=== PATIENT | male | born 1940 | race Caucasian/White ===

== ENCOUNTER 2023-07-23 08:59 | Emergency (ER) | payer MEDICARE, BC, SELFPAY ==
[2023-07-23 09:00] VITALS: BP 171/82
--- NOTE | 2023-07-23 10:41 | ED.GENMED ---
History of Present Illness
General
Chief Complaint: Dizziness
Time Seen by Provider: 07/23/23 10:19
Travel History
Have you had any contact with someone who has COVID-19?: No
Do you have any symptoms of coronavirus? Fever > 100 degrees, chills, cough, shortness of breath, sore throat, loss of taste or smell, muscle aches, or headache?: No
History of Present Illness
History of Present Illness:
82-year-old male presents the emergency department for evaluation of dizziness beginning last night. States that symptoms only strike when he is upright and walking, denies any vertigo or lightheaded sensation but feels as though he is unable to
walk in a straight line. Denies any blurred or double vision. No headaches, vision changes, chest pain, or shortness of breath. Denies any recent cold or flu type illnesses. No recent medication changes.
Review of Systems
Review of Systems
Allergies reviewed?: Yes
All Other Systems: ROS reviewed and negative except as documented in HPI and ROS
Phy Exam
Physical Exam
Physical Exam:
GEN: Well appearing, NAD, WDWN
HEENT: Oral mucosa moist, no scleral icterus, no nasal congestion
Cardiac: Regular rate
Lung: No respiratory distress, no tachypnea
MSK: No gross deformity or injuries
Skin: Good color, no pallor or jaundice, no rashes
Neuro: AO x3; CN II-XII grossly intact. BUE strength 5/5 in all [place], sensation intact and symmetric. BLE strength 5/5 in all [place], sensation intact and symmetric. Normal pmrbpm-dt-bicw and dfax-ks-amqh. Gait is steady,
Psych: Calm, cooperative
Course
Orders/Labs/Results
Orders:
Orders
07/23/23 09:03
EKG [Electrocardiogram (*1)] Urgent
Reason for Study: Vertigo / Dizzy
EKG- Treatment ONCE
07/23/23 10:40
Electrocardiogram (*1) Urgent
Reason for Study: Vertigo / Dizzy
CT Head W/o Iv Contrast Urgent
Comment:
Reason For Exam: dizziness
EKG- Treatment ONCE
07/23/23 10:46
Complete Blood Count/With Diff Urgent
Comprehensive Metabolic Panel Urgent
Abnormal Lab Results
07/23/23
10:46
RBC 4.39 L 10^6/uL
(4.70-6.10)
MCV 95.9 H fL
(80.0-94.0)
MCH 33.0 H pg
(27.0-31.0)
MPV 11.4 H fL
(7.4-10.4)
Immature Gran % 0.6 H %
(0-0.5)
Chloride 110 H mmol/L
(98-107)
BUN 24 H mg/dl
(9-20)
Glucose 109 H mg/dl
(70-99)
Total Bilirubin 1.7 H mg/dl
(0.2-1.3)
07/23/23 10:46
07/23/23 10:46
Vital Signs
Initial and Last Documented VS:
Initial Vital Signs
Temp Pulse Resp BP Pulse Ox
97.7 F 53 18 171/82 97
07/23/23 09:00 07/23/23 09:00 07/23/23 09:00 07/23/23 09:00 07/23/23 09:00
Last Documented Vital Signs
Temp Pulse Resp BP Pulse Ox
97.7 F 47 20 128/74 95
07/23/23 09:00 07/23/23 11:24 07/23/23 11:24 07/23/23 13:00 07/23/23 13:00
MDM/Problems Addressed
MDM/Problems Addressed:
Patient does not have any obvious nystagmus and he does not describe clear vertigo. His gait is quite steady and he does not appear to be immediate fall risk. He has no signs of orthostatic hypotension. He is noted to be bradycardic however is on
atenolol and states this is chronic for him after atenolol, his orthostatic vital signs do show an appropriate compensatory heart rate rise with elevation less than do not think orthostasis plays a role here. At this time the cause is unclear,
given the positional nature it could be an atypical vestibular issue and thus will refer to vestibular therapy as an outpatient. ED return parameters discussed
*Critical Care Note
Total Time (30-74mins, 75-104mins- exclusive of procedures): Not Applicable
ED Attending Note
-
Portions of this chart may have been created with voice recognition software.� Occasional wrong word or��sound alike� substitutions may have occurred due to the inherent limitations of voice recognition software.
Discharge Plan
Departure
Patient Disposition: Home (Routine Discharge)
Date of Disposition: 07/23/23
Time of Disposition: 13:11
Patient with high blood pressure during this ER visit?: No
Discharge Problem:
Vertigo
Instructions: Vertigo (a type of dizziness)
Prescriptions:
New
meclizine 25 mg tablet
25 mg PO BID PRN (Reason: severe dizziness) Qty: 10 0RF
No Action
atorvastatin 20 mg Tablet
20 mg PO QPM
therapeutic multivitamin Tablet
1 tab PO QPM
tamsulosin 0.4 mg Capsule
0.8 mg PO QPM
saw palmetto 160 mg Capsule
160 mg PO QPM
levothyroxine [Synthroid] 50 mcg Tablet
50 mcg PO DAILY
Eliquis 5 mg Tablet
5 mg PO BID Qty: 60 0RF
pantoprazole 40 mg Tablet,Delayed Release (Dr/Ec)
40 mg PO DAILY Qty: 10 0RF
atenolol 25 mg Tablet
25 mg PO BID
Referrals:
Singh Albert MD [Family Provider] -
Activity Restrictions/Additional Instructions:
Follow-up with your primary care physician for a brain MRI if your symptoms do not improve or worsen
Interventions
Interventions:
*Risk Screen - Suicide Last Done: 07/23/23 09:00
*General Assessment Last Done: 07/23/23 09:00
*Neglect/Abuse Screening Last Done: 07/23/23 09:00
ED- Fall Risk Assessment Last Done: 07/23/23 10:47
*ED COVID-19 Vaccine History Last Done: 07/23/23 09:00
*Nursing Disposition Last Done: 07/23/23 13:27
ED- Neurological Assessment Last Done: 07/23/23 10:47
ED- Cardiac Assessment Last Done: 07/23/23 10:47
ED Swallowing Screen Last Done: 07/23/23 10:47
Discharge Date and Time
Discharge Date/Time: 07/23/23 13:34
[2023-07-23 10:45] VITALS: BP 138/60
[2023-07-23 10:47] VITALS: BMI 26.6
[2023-07-23 10:53] LABS: % Basophils 0.3 % (0-2); % Eosinophils 0.7 % (0-6); % Immature Granulocytes 0.6 % (0-0.5); % Lymphocytes 27.3 % (20.5-51.1); % Monocytes 7.2 % (1.7-9.3); % Neutrophils 63.9 % (42.2-75.2); Absolute Eosinophils 0.1 10^3/uL (0-0.7); Absolute Lymphocytes 1.8 10^3/uL (1.2-3.4); Absolute Monocytes 0.5 10^3/uL (0.1-0.6); Absolute Neutrophils 4.3 10^3/uL (1.4-6.5); Hematocrit 42.1 % (39.0-52.0); Hemoglobin 14.5 g/dL (13.0-18.0); Mean Corp Hgb Conc. 34.4 g/dL (33.0-37.0); Mean Corpuscular Volume 95.9 fL (80.0-94.0); Mean Platelet Volume 11.4 fL (7.4-10.4); Nucleated Red Blood Cells % 0 % (-); Platelet Count 170 10^3/uL (130-400); Red Blood Cell Count 4.39 10^6/uL (4.70-6.10); Red Cell Dist. Width 13.5 % (11.5-14.5); White Blood Cell Count 6.7 10^3/uL (4.8-10.8)
[2023-07-23 11:00] VITALS: BP 120/59
[2023-07-23 11:06] LABS: ALT (SGPT) 20 U/L (0-50); AST (SGOT) 29 U/L (17-59); Albumin 4.2 g/dl (3.5-5.0); Alkaline Phosphatase 50 U/L (38-126); Blood Urea Nitrogen 24 mg/dl (9-20); Calcium 9.1 mg/dl (8.4-10.2); Carbon Dioxide 22 mmol/L (22-30); Chloride 110 mmol/L (98-107); Estimated Creatinine Clearance 59 ml/min; Glucose 109 mg/dl (70-99); Potassium 4.2 mmol/L (3.5-5.1); Sodium 137 mmol/L (135-145); Total Bilirubin 1.7 mg/dl (0.2-1.3); Total Protein 6.8 g/dl (6.3-8.2); eGFR > 60.00
[2023-07-23 12:56] VITALS: BP 121/67
[2023-07-23 12:57] VITALS: BP 134/70
[2023-07-23 13:00] VITALS: BP 128/74
== END 2023-07-23 13:34 | disposition home or self-care (01) ==
LOC: EMR 08:59
PROVIDERS: Physician Assistant; EMERGENCY PHYSICIAN Emergency Medicine; FAMILY PHYSICIAN Family Medicine
DX: R42 Dizziness and giddiness (principal)
CPT/HCPCS: 99285; 70450; 80053; 85025; 93005

== ENCOUNTER → 2024-01-22 13:54 | Outpatient (REF) | payer MEDICARE, BC, SELFPAY | LOC: HWRCS 13:54 | PROVIDERS: ATTENDING PHYSICIAN Internal Medicine Cardiovascular Disease; FAMILY PHYSICIAN Family Medicine | DX: I48.0 Paroxysmal atrial fibrillation (principal); I30.0 Acute nonspecific idiopathic pericarditis | CPT/HCPCS: 93306 ==

== ENCOUNTER → 2024-02-01 07:22 | Day surgery (SDC) | payer MEDICARE, BC, SELFPAY | LOC: CATH 07:22 | PROVIDERS: ATTENDING PHYSICIAN Internal Medicine Cardiovascular Disease; FAMILY PHYSICIAN Family Medicine | DX: I48.91 Unspecified atrial fibrillation (principal); Z53.09 Procedure and treatment not carried out because of other contraindication; E03.9 Hypothyroidism, unspecified; E78.00 Pure hypercholesterolemia, unspecified; Z87.891 Personal history of nicotine dependence; Z79.82 Long term (current) use of aspirin | CPT/HCPCS: 93005 ==